=== PATIENT | male | born 1955 | race Caucasian/White ===

== ENCOUNTER 2024-07-11 06:30 | Outpatient (CLI) | payer MEDICARE, SELFPAY ==
--- NOTE | 2024-07-11 | CA_ITS ---
APPROVED REPORT Exam: Pharmacologic Technologist: Amina Moore Ht: 5 ft 6 in Wt: 182 lbs BSA: 1.92 m2 HR: 47 bpm BP: 139/72 mmHg Medical History Cardiac Risk Factors: HTN Stress Test Details HR Resting HR: 47 bpm Max Heart Rate (APMHR): 150 bpm Target HR (85% APMHR): 128 bpm Recovery HR: 55 bpm BP Resting BP: 139.0/72.0 mmHg Recovery BP: 147.0/65.0 mmHg ECG Stress ECG Conclusion During lexiscan pt experinced SOA, no CP noted. No arrhythmias noted. No evidence of ischemia on ECG after Lexiscan administration. Electronically signed by : Mireya Mendoza MD 07/11/2024 12:03:26
--- NOTE | 2024-07-11 06:38 | NM_ITS ---
APPROVED REPORT Exam: Nuclear Stress Test Indication: chest pain..soa..fatigue Patient Location: Outpatient Stress Tech: Amina Teresa MILLER Tech:Estee ReeseringtonCARL RT(R)(N) Ht: 5 ft 6 in Wt: 175 lbs HR: 47 bpm BP: 139/72 mmHg BSA: 1.89 m2 TID: 1.09 BMI: 28.2 History: chest pain..soa..fatigue Procedure: Patient received 0.4 mg of intravenous Lexiscan, resting heart rate 47 bpm, resting blood pressure 139/72 mmHg, with Lexiscan maximum heart rate achieved was 62 bpm which is 85 % of the maximum predicted heart rate and blood pressure was 123/67 mmHg. With Lexiscan, patient denied any complaint of chest pain. Cardiac Stress and Resting SPECT Images: Cardiac Stress and Resting SPECT images were obtained using technetium 99m Myoview 31.7 mCi stress and 10.43 mCi at rest. Resting and stress imaging in supine and prone positions demonstrate no evidence of fixed or reversible perfusion defects. Gated imaging demonstrates normal global and regional LV systolic function. LVEF is calculated at 55%. Conclusion: No evidence of fixed or reversible perfusion defects. Gated imaging demonstrates normal global and regional LV systolic function. LVEF is calculated at 55%. Electronically signed by : Mireya Mendoza MD 07/11/2024 11:58:53
--- NOTE | 2024-07-11 08:09 | CA_ITS ---
APPROVED REPORT EXAM: Comprehensive 2D, Doppler, and color-flow Echocardiogram Speech Pathology Teacher: Susana Grover RT(R) Ht: 5 ft 6 in Wt: 175lbs BSA: 1.89 BP: 144/67 mmHg Indications: CP, dyspnea, HTN, Abn EKG 2D Dimensions LVEF (Shaver's) 45.60 % M: 52 - 72 LV Volume 106.00 mL M: 62 - 150 LV Volume Index 56.1 mL/m2 M: 34 - 74 LA Volume 37.50 mL LA Volume Index 19.84 mL/m2 (M/F) 16-34 EF AP4 29.00 % EF AP2 69.4 % EF BP 45.6 % GL Strain -12.5 % M-Mode Dimensions RVDd 2.75 cm (0.9-2.6) LA Diam 3.79 cm (1.9-4.0) LVDd 5.21 cm (3.5-5.7) LVDs 3.14 cm (3.5-5.7) IVSd 0.68 cm (0.6-1.1) PWd 0.93 cm (0.6-1.1) EF (Teich) 69.90% FS 39.70% EDV (Teich) 130.10 mL ESV (Teich) 39.10 mL LV Diastology E Decel Time 217 (160-240 msec) E/A Ratio 1.3 Mitral Valve MV E Max Wilver. 79.0 (40-130 cm/s) MV A Velocity 63.0 (40-130 cm/s) E/A Ratio 1.25 MV PHT 63.0 ms Tricuspid Valve TR P. Velocity 200.00 cm/s RAP Estimate 10.00 mmHg RVSP 25.90 mmHg Left Ventricle The left ventricle is normal size. The left ventricular systolic function is normal. The left ventricular ejection fraction is within the normal range. There is increased LV wall thickness. There is normal LV segmental wall motion. The left ventricular diastolic function is normal. LVEF is 55%. Right Ventricle The right ventricle is normal size. The right ventricular systolic function is normal. Atria The left atrium is mildly dilated. The right atrium size is normal. There is no Doppler evidence of interatrial shunt. Aortic Valve Aortic valve is mildly thickened. There is no aortic valvular stenosis. Mild aortic regurgitation. Mitral Valve The mitral valve is normal in structure. No evidence of mitral valve stenosis. Mild mitral regurgitation. Tricuspid Valve The tricuspid valve leaflets are thin and pliable. Mild tricuspid regurgitation. RVSP is normal. Pulmonic Valve The pulmonary valve is normal in structure. Trace pulmonic regurgitation. Great Vessels The aortic root is normal in size. The ascending aorta is not well-visualized. IVC is normal in size and collapses >50% with inspiration. Pericardium There is no pericardial effusion. Other Information Study Quality: Fair Conclusion Normal biventricular systolic function. Mild AI, mild MR, mild TR. Electronically signed by : Mireya Mendoza MD 07/16/2024 01:34:59
[2024-07-11] MEDS: ISOTOPE MYOVIEW (PER STUDY) 1 DOSE IV (09:29)
[2024-07-11] MEDS: REGADENOSON 0.4MG/5ML SYRINGE 0.4 MG IV (09:29)
[2024-07-11] MEDS: SODIUM CHLORIDE 0.9% 10ML SYR (RAD ONLY) 10 ML IV ×2 (09:29)
== END 2024-07-11 23:59 | disposition home or self-care (01) ==
PROVIDERS: PCP Family Medicine; Visit Provider Internal Medicine
DX: R07.89 Other chest pain (principal); R06.09 Other forms of dyspnea; I10 Essential (primary) hypertension; I44.4 Left anterior fascicular block; R94.31 Abnormal electrocardiogram [ECG] [EKG]
CPT/HCPCS: 78452; 93017; 93018; 93306; A9502; J2785

== ENCOUNTER 2024-07-26 09:37 | Outpatient (CLI) | payer MEDICARE, SELFPAY ==
--- NOTE | 2024-07-26 09:42 | CA_ITS ---
FINAL REPORT TECHNIQUE: Ultrasound images of the kidneys were obtained. Duplex Doppler of the renal arteries, RAR and RI also obtained. Spectral analysis was performed. CLINICAL HISTORY: HTN FINDINGS: Limited images of the liver parenchyma demonstrate normal echogenicity. The right kidney measures 10.1 cm in length. It is normal echogenicity. There is no hydronephrosis. PSV =160.5 cm/s RI is 0.71. The renal artery/aortic ratio: Appreciate 1.5. The left kidney measures 9.5 cm in length. It is normal echogenicity. There is no hydronephrosis. PSV = 271.1 cm/s. RI is 0.65. The renal artery/aortic ratio: 2.6. IMPRESSION: No evidence of renal artery stenosis on the right. Less than 60% renal artery stenosis on the left. Reviewed, Interpreted and Dictated by Alecia Marion MD Transcribed by Johnna Galarza Authenticated and [facility]
--- NOTE | 2024-07-26 10:08 | US_ITS ---
FINAL REPORT TECHNIQUE: Ultrasound images of the kidneys were obtained. CLINICAL HISTORY: R06.09 - Other forms of dyspnea--HYPERTENSION COMPARISON: None FINDINGS: RENAL ULTRASOUND The right kidney measures 10.6 cm in length. It is normal echogenicity. There is no hydronephrosis. The left kidney measures 9.3 cm in length. It is normal echogenicity. There is no hydronephrosis. IMPRESSION: Normal renal ultrasound. Reviewed, Interpreted and Dictated by Alecia Marion MD Transcribed by Mayet Bautista Authenticated and [facility]
== END 2024-07-26 23:59 | disposition home or self-care (01) ==
LOC: RT 09:39
PROVIDERS: PCP Family Medicine; Visit Provider Physician Assistant
DX: I10 Essential (primary) hypertension (principal); R06.09 Other forms of dyspnea; R07.89 Other chest pain; I44.4 Left anterior fascicular block; R94.31 Abnormal electrocardiogram [ECG] [EKG]
CPT/HCPCS: 76770; 93976